=== PATIENT | female | born 1950 | race Caucasian/White ===

== ENCOUNTER 2021-03-25 08:00 | Outpatient (CLI) | payer OTHER, SELFPAY ==
--- NOTE | ~2021-03-25 | MM_ITS ---
EXAMINATION: MM screening [facility] BI w marleen HISTORY: Screening mammogram TECHNIQUE: Craniocaudal and mediolateral oblique 3-D tomosynthesis images were obtained and synthetic 2-D images were generated. CAD analysis was submitted and interpreted. COMPARISON: 05/16/2019, 03/30/2018, 03/25/2017 BREAST PARENCHYMAL COMPOSITION: The breasts are heterogeneously dense, which may obscure small masses . FINDINGS: There is no evidence of suspicious mass, calcification, or architectural distortion to sugg est malignancy in either breast. There has been no suspicious interval change. IMPRESSION: 1. No mammographic evidence of malignancy. 2. Recommend routine screening mammography in one year. BI-RADS Category 1: Negative Reviewed, dictated and finalized at location A.
== END 2021-03-25 08:01 | disposition home or self-care (01) ==
LOC: CHSIMG 08:03
PROVIDERS: PCP Internal Medicine; Visit Provider Internal Medicine
DX: Z12.31 Encounter for screening mammogram for malignant neoplasm of breast (principal)
CPT/HCPCS: 77063; 77067

== ENCOUNTER 2021-10-16 07:46 | Outpatient (CLI) | payer MEDICARE, SELFPAY ==
--- NOTE | ~2021-10-16 | DEXA_ITS ---
Bone Density Report Name: Francesca Parrish Age: 71 Sex: Female Ethnicity: White Date of : 1950 Indication: postmenopausal; screening for osteoporosis; height loss; hysterectomy; Referring Provider: Roger Santos Study: Bone densitometry was performed. Exam Date: October 16, 2021 Accession number: [id number] Bone Density: Region BMD T-score Z-score Classification AP Spine(L2, L3, L4) 1.130 0.5 2.6 Normal Femoral Neck (Left) 0.721 -1.1 0.6 Osteopenia Total Hip (Left) 0.751 -1.6 -0.1 Osteopenia Femoral Neck (Right) 0.711 -1.2 0.5 Osteopenia Total Hip (Right) 0.771 -1.4 0.1 Osteopenia Femoral Neck Mean 0.716 -1.2 0.6 Osteopenia Total Hip Mean 0.761 -1.5 0.0 Osteopenia World Health Organization criteria for BMD impression classify patients as: Normal (T-score at or above -1.0), Osteopenia (T-score between -1.0 and -2.5), or Osteoporosis (T-score at or below -2.5). 10-year Fracture Risk(1): Major Osteoporotic Fracture 8.7% Hip Fracture 0.9% Reported Risk Factors: [place] (), Neck BMD=0.711, BMI=31.6 (1) FRAX(R) Version 3.08. Fracture probability calculated for an untreated patient. Fracture probability may be lower if the patient has received treatment. Clinical Information Provided by Patient: Has used the following medications: Vitamin D Has the following medical conditions: Hysterectomy, ostearthritis Patient maximum height was 62 Menopause Age: 39 No regular weight bearing exercise Drinks caffeinated beverages Onset of menses at age 15 Number of children 2 Impression: The patient has low bone mass, based on the Left Total Hip T-score. Discussion: BONE DENSITY IS LOW AT ONE OR MORE SKELETAL SITES. This patient's lowest T-score is low at one or more skeletal sites. It meets the World Health Organization's (WHO) criteria for ?low bone mass? (T-score between -1.0 and -2.5). The patient's 10-year risk of fracture as calculated by FRAX is less than the threshold where pharmacological therapy is recommended by the National Osteoporosis Foundation (NOF). However, all treatment decisions require clinical judgment and consideration of individual patient factors, including patient preferences, comorbidities, previous drug use, risk factors not captured in the FRAX model (e.g., frailty, falls, vitamin D deficiency, increased bone turnover, interval significant decline in bone density) and possible under or overestimation of fracture risk by FRAX. The patient should follow a healthful lifestyle (good nutrition with adequate calcium and vitamin D, and appropriate weight-bearing exercise). Follow-Up: Consider repeating this study in 2 to 3 years to reassess this patient's status, or sooner if there is some new clinical indication. Reported by: Dr. Meza
== END 2021-10-16 07:47 | disposition home or self-care (01) ==
LOC: CHSIMG 07:47
PROVIDERS: PCP Internal Medicine; Visit Provider Internal Medicine
DX: M81.0 Age-related osteoporosis without current pathological fracture (principal)
CPT/HCPCS: 77080

== ENCOUNTER 2022-03-30 07:15 | Outpatient (CLI) | payer MEDICARE, SELFPAY ==
--- NOTE | ~2022-03-30 | MM_ITS ---
EXAMINATION: MM screening [facility] BI w marleen HISTORY: Screening mammogram TECHNIQUE: Craniocaudal and mediolateral oblique 3-D tomosynthesis images were obtained and synthetic 2-D images were generated. CAD analysis was submitted and interpreted. COMPARISON: 03/25/2021, 05/16/2019 BREAST PARENCHYMAL COMPOSITION: The breasts are heterogeneously dense, which may obscure small masses . FINDINGS: RIGHT BREAST: There is possible architectural distortion in the middle third of the outer breast best appreciated 5.5 cm from the nipple on the craniocaudal view. LEFT BREAST: There is no suspicious mass, calcification, or architectural distortion to suggest malig nida. There has been no significant interval change. IMPRESSION: 1. Possible right breast architectural distortion. 2. Additional mammographic views and possible breast ultrasound are recommended. BI-RADS Category 0: Incomplete: Needs additional imaging evaluation. Reviewed, dictated and finalized at location A. IMPRESSION: 1. Possible right breast architectural distortion. 2. Additional mammographic views and possible breast ultrasound are recommended . BI-RADS Category 0: Incomplete: Needs additional imaging evaluation.
== END 2022-03-30 07:16 | disposition home or self-care (01) ==
LOC: CHSIMG 07:16
PROVIDERS: PCP Internal Medicine; Visit Provider Internal Medicine
DX: Z12.31 Encounter for screening mammogram for malignant neoplasm of breast (principal)
CPT/HCPCS: 77063; 77067

== ENCOUNTER 2022-03-31 08:46 | Outpatient (CLI) | payer MEDICARE, SELFPAY ==
--- NOTE | ~2022-03-31 | MMUS_ITS ---
EXAMINATION: MM diagnostic [facility]ngel RT w marleen, US breast RT limited HISTORY: Possible architectural distortion of the right breast on screening mammogram. TECHNIQUE: Additional 3-D tomosynthesis images of the right breast were performed and synthetic 2-D i mages were generated. CAD analysis was submitted and interpreted. High resolution limited right breas t ultrasound was performed. COMPARISON: 03/30/2022, 03/25/2021, 05/16/2019, 04/09/2018 FINDINGS: MAMMOGRAPHIC FINDINGS: There is a return to baseline fibroglandular appearance with spot compression of the right breast in the area questioned on screening mammogram. ULTRASOUND: There appears to be a mass with central fat at the 8:00 location 3 cm from the nipple, suggestive of an intramammary lymph node. IMPRESSION: 1. Probable intramammary lymph node of the lower-outer right breast. 2. Recommend 6 month follow-up right diagnostic mammogram and ultrasound. BI-RADS category 3, probably benign findings. Reviewed, dictated and finalized at location A. IMPRESSION: 1. Probable intramammary lymph node of the lower-outer right breast. 2. Recommend 6 month follow-up right diagnostic mammogram and ultrasound. BI-RADS category 3, probably benign findings.
== END 2022-03-31 08:47 | disposition home or self-care (01) ==
LOC: CHSIMG 08:50
PROVIDERS: PCP Internal Medicine; Visit Provider Internal Medicine
DX: R92.8 Other abnormal and inconclusive findings on diagnostic imaging of breast (principal)
CPT/HCPCS: 76642; 77061; 77065; G0279

== ENCOUNTER 2022-10-27 08:39 | Outpatient (CLI) | payer MEDICARE, SELFPAY ==
--- NOTE | ~2022-10-27 | MMUS_ITS ---
EXAMINATION: MM diagnostic ángel RT w marleen, US breast RT limited HISTORY: Abnormal screening mammogram. TECHNIQUE: Additional 3-D tomosynthesis images of the right breast were performed and synthetic 2-D i mages were generated. CAD analysis was submitted and interpreted. High resolution Limited right breas t ultrasound was performed. COMPARISON: Comparison to multiple prior studies sequentially, with oldest reviewed study dated 03/25. BREAST PARENCHYMAL COMPOSITION: Breast composed of scattered areas of fibroglandular density FINDINGS: MAMMOGRAPHIC FINDINGS: The right breast is stable. There is a small intramammary lymph node in the mid outer aspect of the r ight breast which is unchanged dating back to 05/16/2019. ULTRASOUND: Limited right breast ultrasound: At 8:00, 3 cm from the nipple, there is a 4 mm intramammary lymph no de corresponding to the finding on mammography. This is unchanged from prior ultrasound. No suspiciou s masses to suggest malignancy. IMPRESSION: 1. Stable benign-appearing right intramammary lymph node by mammography and ultrasound. 2. Routine yearly screening mammogram and regular clinical breast examination are recommended. BI-RADS Category 2: Benign finding(s). Reviewed, dictated and finalized at location B. ER AND CELLOPHANER MACHINE IMPRESSION: 1. Stable benign-appearing right intramammary lymph node by mammography and ult rasound. 2. Routine yearly screening mammogram and regular clinical breast examination a re recommended. BI-RADS Category 2: Benign finding(s).
== END 2022-10-27 08:40 | disposition home or self-care (01) ==
LOC: CHSIMG 08:41
PROVIDERS: PCP Internal Medicine; Visit Provider Internal Medicine
DX: R92.8 Other abnormal and inconclusive findings on diagnostic imaging of breast (principal)
CPT/HCPCS: 76642; 77061; 77065; G0279

== ENCOUNTER 2023-01-19 17:20 | Outpatient (CLI) | payer MEDICARE, SELFPAY ==
--- NOTE | ~2023-01-19 | XR_ITS ---
EXAM: XR hand BI arthritis min 3V DATE: 01/19/2023 18:34 HISTORY: Bilateral chronic hand pain at base of 1st digits. . COMPARISON: None available. FINDINGS: Flexion contracture of the left fifth digit. Diffuse osteopenia. Joint space narrowing, cuba bchondral sclerosis, and osteophytosis in multiple joints, most evident in the DIP joints of the fing ers, the bilateral trapeziometacarpal joints, and the bilateral first and second MCP joints. There is chondrocalcinosis in the bilateral wrists. IMPRESSION: Polyarticular arthritis of the hands. Left fifth digit flexion contracture. Chondrocalcin osis, as can be seen with CPPD. Reviewed, dictated and finalized at location K. UITING TEAM LEAD IMPRESSION: Polyarticular arthritis of the hands. Left fifth digit flexion cont racture. Chondrocalcinosis, as can be seen with CPPD.
== END 2023-01-19 17:21 | disposition home or self-care (01) ==
LOC: CHSIMG 17:23
PROVIDERS: PCP Internal Medicine; Visit Provider Internal Medicine
DX: M79.641 Pain in right hand (principal); M79.642 Pain in left hand; M19.042 Primary osteoarthritis, left hand; M19.041 Primary osteoarthritis, right hand
CPT/HCPCS: 73130

== ENCOUNTER 2023-07-22 12:22 | Outpatient (CLI) | payer MEDICARE, SELFPAY ==
--- NOTE | ~2023-07-22 | US_ITS ---
EXAMINATION: US carotid duplex BI DATE: 07/22/2023 12:50 INDICATION: Carotid bruit TECHNIQUE: Grayscale, color Doppler, and pulsed Doppler images of the cervical carotid arteries were obtained. The degree of vessel stenosis is placed in one of the following categories: normal, <50%, 5 0-69%, >=70% but less than near-occlusion, near-occlusion, or total occlusion. Note that percent sten osis relative to normal distal artery lumen diameter is indirectly measured from velocity measurement s as described by Wilmer, et al. Radiology 2003; 229:340-346. COMPARISON: None. FINDINGS: RIGHT: The right common carotid artery (CCA) peak systolic velocity (PSV) is 79 cm/s. The right internal car otid artery (ICA) PSV is 106 cm/s. The right ICA end-diastolic velocity (EDV) is 45 cm/s. The right I CA/CCA PSV ratio is 1.3. Grayscale and color Doppler images yield an estimate of <50% diameter reduct ion from plaque in the ICA. The external carotid artery (ECA) PSV is 60 cm/s. There is antegrade flow in the right vertebral artery. LEFT: The left CCA PSV is 80 cm/s. The left ICA PSV is 103 cm/s. The left ICA EDV is 38 cm/s. The left ICA/ CCA PSV ratio is 1.3. Grayscale and color Doppler images yield an estimate of <50% diameter reduction from plaque in the ICA. The ECA PSV is 83 cm/s. There is antegrade flow in the left vertebral artery . IMPRESSION: 1. <50% stenosis in the right internal carotid artery. 2. <50% stenosis in the left internal carotid artery. Reviewed, dictated and finalized at location A.
== END 2023-07-22 12:23 | disposition home or self-care (01) ==
LOC: CHSIMG 12:24
PROVIDERS: PCP Internal Medicine; Visit Provider Internal Medicine
DX: R09.89 Other specified symptoms and signs involving the circulatory and respiratory systems (principal); I65.23 Occlusion and stenosis of bilateral carotid arteries
CPT/HCPCS: 93880

== ENCOUNTER 2023-10-29 11:59 | Outpatient (CLI) | payer MEDICARE, SELFPAY ==
--- NOTE | ~2023-10-29 | DEXA_ITS ---
Bone Density Report Name: RONNIE ABRAHAM Age: 73 Sex: Female Ethnicity: White Date of : 1950 Indication: postmenopausal; screening for osteoporosis; height loss; hysterectomy; Referring Provider: Roger Santos Study: Bone densitometry was performed. Exam Date: October 29, 2023 Accession number: [id number] Bone Density: Region BMD T-score Z-score Classification AP Spine(L2, L3, L4) 1.128 0.4 2.7 Normal Femoral Neck (Left) 0.687 -1.5 0.4 Osteopenia Total Hip (Left) 0.770 -1.4 0.2 Osteopenia Femoral Neck (Right) 0.684 -1.5 0.4 Osteopenia Total Hip (Right) 0.773 -1.4 0.2 Osteopenia Femoral Neck Mean 0.685 -1.5 0.4 Osteopenia Total Hip Mean 0.772 -1.4 0.2 Osteopenia World Health Organization criteria for BMD impression classify patients as: Normal (T-score at or above -1.0), Osteopenia (T-score between -1.0 and -2.5), or Osteoporosis (T-score at or below -2.5). 10-year Fracture Risk(1): Major Osteoporotic Fracture 9.8% Hip Fracture 1.5% Reported Risk Factors: [place] (), Neck BMD=0.684, BMI=32.4 (1) FRAX(R) Version 3.08. Fracture probability calculated for an untreated patient. Fracture probability may be lower if the patient has received treatment. Clinical Information Provided by Patient: Has used the following medications: Vitamin D Has the following medical conditions: Hysterectomy, ostearthritis Patient maximum height was 62 Menopause Age: 39 No regular weight bearing exercise Drinks caffeinated beverages Onset of menses at age 15 Number of children 2 Impression: The patient has low bone mass, based on the Left Femoral Neck T-score. Discussion: BONE DENSITY IS LOW AT ONE OR MORE SKELETAL SITES. This patient's lowest T-score is low at one or more skeletal sites. It meets the World Health Organization's (WHO) criteria for ?low bone mass? (T-score between -1.0 and -2.5). The patient's 10-year risk of fracture as calculated by FRAX is less than the threshold where pharmacological therapy is recommended by the National Osteoporosis Foundation (NOF). However, all treatment decisions require clinical judgment and consideration of individual patient factors, including patient preferences, comorbidities, previous drug use, risk factors not captured in the FRAX model (e.g., frailty, falls, vitamin D deficiency, increased bone turnover, interval significant decline in bone density) and possible under or overestimation of fracture risk by FRAX. The patient should follow a healthful lifestyle (good nutrition with adequate calcium and vitamin D, and appropriate weight-bearing exercise). Follow-Up: Consider repeating this study in 2 to 3 years to reassess this patient's status, or sooner if there is some new clinical indication. Reported by:
--- NOTE | ~2023-10-29 | MM_ITS ---
EXAMINATION: MM screening [facility] BI w marleen HISTORY: Screening TECHNIQUE: Craniocaudal and mediolateral oblique 3-D tomosynthesis images were obtained and synthetic 2-D images were generated. CAD analysis was submitted and interpreted. COMPARISON: Comparison to multiple prior studies sequentially, with oldest reviewed study dated 03/30. BREAST PARENCHYMAL COMPOSITION: Breast composed of scattered areas of fibroglandular density FINDINGS: There is a chronic focal asymmetry in the mid outer aspect of the right breast anterior-mid depth which is unchanged from prior studies allowing for differences of technique There is no eviden ce of suspicious mass, calcification, or architectural distortion to suggest malignancy in either mateo ast. There has been no suspicious interval change. IMPRESSION: 1. No mammographic evidence of malignancy. 2. Recommend routine screening mammography in one year. BI-RADS Category 2: Benign finding(s). Reviewed, dictated and finalized at location A. GRADER
== END 2023-10-29 12:00 | disposition home or self-care (01) ==
LOC: CHSIMG 12:01
PROVIDERS: PCP Internal Medicine; Visit Provider Internal Medicine
DX: Z12.31 Encounter for screening mammogram for malignant neoplasm of breast (principal); Z78.0 Asymptomatic menopausal state; M85.89 Other specified disorders of bone density and structure, multiple sites
CPT/HCPCS: 77063; 77067; 77080

== ENCOUNTER 2024-02-08 14:03 | Outpatient (CLI) | payer MEDICARE, SELFPAY ==
--- NOTE | ~2024-02-08 | XR_ITS ---
XR knee RT 3V 02/08/2024 14:37 Indication: Right knee pain Procedure: 3 views right knee Comparison: No prior studies for comparison. Findings: No fracture, subluxation or dislocation. No significant joint effusion. No foreign bodies. No significant joint effusion. Mild osteoarthritis. Impression: 1: Mild osteoarthritis of the right knee. Reviewed, dictated and finalized at location L. Impression: 1: Mild osteoarthritis of the right knee.
--- NOTE | ~2024-02-08 | XR_ITS ---
XR knee LT 3V 02/08/2024 14:36 Indication: Left knee pain Procedure: 3 views left knee Comparison: No prior studies for comparison. Findings: There is mild-moderate lateral compartmental osteoarthritis. There is degenerative change o f the patellofemoral compartment medial facet. No fracture or traumatic malalignment. No significant joint effusion. Impression: 1: Moderate osteoarthritis of the left knee. Reviewed, dictated and finalized at location L. Impression: 1: Moderate osteoarthritis of the left knee.
== END 2024-02-08 14:04 | disposition home or self-care (01) ==
LOC: CHSIMG 14:04
PROVIDERS: PCP Internal Medicine; Visit Provider Internal Medicine
DX: M17.0 Bilateral primary osteoarthritis of knee (principal); M25.562 Pain in left knee
CPT/HCPCS: 73562

== ENCOUNTER 2024-06-13 07:43 | Outpatient (RCR) | payer MEDICARE, SELFPAY ==
--- NOTE | 2024-06-13 08:15 | OPREHPOC ---
Outpatient Therapy Plan of Care This is a Multidisciplinary Plan of Care that may contain components documented by all disciplines (PT, OT, and ST.) PT Problem 1 PT Problem #1 Knowledge Deficit PT Goal 1 Goal The patient will be independent in a home exercise program. Target Visit 8 PT Problem 2 PT Problem #2 Pain PT Goal 1 Goal The patient will report no greater than 4/10 left knee pain with ADLs. The patient will report no greater than 2/10 right knee pain with ADLs. Target Visit 8 PT Problem 3 PT Problem #3 Impaired Range of Motion PT Goal 1 Goal The patient will demonstrate 0-130 degrees left knee AROM to improve gait. Target Visit 8 PT Problem 4 PT Problem #4 Impaired Functional Mobil PT Goal 1 Goal The patient will demonstrate less than 50% self perceived disability per the LEFS. The patient will ambulate 1,000 feet during the 6 minute walk test without a rest break to improve community ambulation. The patient will report no instances of the left knee giving out for a one week period. Target Visit 8
--- NOTE | 2024-06-13 08:15 | PTOPEVAL1 ---
Assessment and note entered by Ester Rod, PT Evaluation Information Assessment Status Evaluation Diagnosis Bilateral knee OA ICD-10 Condition Codes (PT) M25.561,Pain in left knee M25.562 Onset 06/12/24 Subjective Information Francesca Parrish reports she has arthritis in both knees. She has had 2 injections in her left knee but it has not helped. The first injection was about 3-4 months ago and it helped temporarily but then the pain returned. She had the second injection on 06/12/24. She notes the right knee has been taking over for the left knee and it has been hurting as well. She notes the left knee will occasionally give out on her. She was using a cane about 3 weeks ago after her knee gave out the last time. She notes difficulty with walking longer distances and has to take stairs one at a time. She reports a history of falling on the left knee and fracturing her left knee cap about 15 years ago and she also has osteopenia. Reported Pain Level Pain Score 2,0: Self Report Assessment PT Clinical Summary Francesca Parrish presents with bilateral knee pain with the left being worse than the right. She has been diagnosed with osteoarthritis. She is noting difficulty walking long distances, navigating stairs, walking on uneven terrain, and bending her left knee. She demonstrates tenderness along the left and right knee joint line, decreased left knee AROM, decreased left > right knee and hip strength, decreased balance, altered gait, and decreased functional abilities. She demonstrates a moderate fall risk. She will benefit from skilled PT to address these limitations. Plan of Care Interventions Electrical Stimulation,Hot Pack/Cold Pack, Intermittent Compression,Manual Therapy,Neuro Re- education,Patient/Caregiver Educati,Therapeutic Activities,Therapeutic Exercise PT Services Indicated Yes Treatment Frequency and 2 times a week for 8 visits Duration These treatments will address the objective and functional deficits as defined above. The patient will be advanced safely and appropriately in order for the patient to progress towards his/her prior level of function. Additional exercises will be introduced and as well as a comprehensive home exercise program upon discharge, if needed, ?to ensure carryover of functional gains achieved in the clinic. This treatment plan has been reviewed and agreement upon by the patient.
--- NOTE | 2024-07-06 07:50 | OPREHPOC ---
Outpatient Therapy Plan of Care This is a Multidisciplinary Plan of Care that may contain components documented by all disciplines (PT, OT, and ST.) PT Problem 1 PT Problem #1 Knowledge Deficit PT Goal 1 Goal / Goal Update The patient will be independent in a home exercise program. Target Visit 8 Progress Met PT Problem 2 PT Problem #2 Pain PT Goal 1 Goal / Goal Update The patient will report no greater than 4/10 left knee pain with ADLs. The patient will report no greater than 2/10 right knee pain with ADLs. Target Visit 8 Progress Met PT Problem 3 PT Problem #3 Impaired Range of Motion PT Goal 1 Goal / Goal Update The patient will demonstrate 0-130 degrees left knee AROM to improve gait. Target Visit 8 Progress Met PT Problem 4 PT Problem #4 Impaired Functional Mobil PT Goal 1 Goal / Goal Update The patient will demonstrate less than 50% self perceived disability per the LEFS. met The patient will ambulate 1,000 feet during the 6 minute walk test without a rest break to improve community ambulation. met The patient will report no instances of the left knee giving out for a one week period. met Target Visit 8 Progress Met
--- NOTE | 2024-07-06 07:50 | PTOPDC ---
Assessment and note entered by JT File, PT Evaluation Information Assessment Status Discharge Diagnosis Bilateral knee OA ICD-10 Condition Codes (PT) M25.561,Pain in left knee M25.562 Onset 06/12/24 Subjective Information patient reports she feels Good today. she reports her knees are a little achy, but reports this is most likely due to the weather. patient reports the knees do not give out on her any more. she reports she walked outside for about 30 minutes last night with her . she reports at worst her pain/soreness has been no more than a 4/10. she reports she has not had to take her pain medication. Reported Pain Level Pain Score 0: Self Report Assessment PT Clinical Summary mrs. green presents to skilled PT services for her 8th skilled PT visit today. she has displayed improved knee rom, ambulation speed/endurance, and functional activity envolvment/performance. she has met all goals for skilled PT today, and is compliant with her HEP at home. she will DC skilled PT today to independent HEP. Plan of Care PT Services Indicated Yes
== END 2024-07-06 08:50 | disposition home or self-care (01) ==
LOC: CHSPT 07:43
PROVIDERS: Visit Provider Internal Medicine
DX: M17.0 Bilateral primary osteoarthritis of knee (principal)
CPT/HCPCS: 97110; 97112; 97161; 97530

== ENCOUNTER 2025-02-17 10:24 | Outpatient (CLI) | payer MEDICARE, SELFPAY ==
--- NOTE | ~2025-02-17 | MR_ITS ---
EXAMINATION: MR knee LT wo con DATE: 02/17/2025 11:02 INDICATION: Lt. knee pain x1 year, NKI TECHNIQUE: Magnetic resonance imaging (MRI) of the left knee was performed without intravenous contra st. Sequences included axial PD-weighted FS FSE, coronal PD-weighted FSE and PD-weighted FS FSE, sagi ttal PD-weighted FSE, and sagittal T2-weighted FS FSE. COMPARISON: X-ray left knee 02/08/2024 FINDINGS: Medial compartment: Meniscus intact. Moderate diffuse cartilage thinning. Mild osteophytosis. Lateral compartment: Full-thickness, near diffuse cartilage loss in the lateral compartment, with moderate osteophytosis. The anterior meniscal horn is not visualized. Apical meniscal tear at the meniscal body. Mild menisca l extrusion. Patellofemoral compartment: Moderate diffuse thinning, with full-thickness loss over the median ridge and multiple full-thickness fissures. Retinacula intact. Ligaments and tendons: The ACL, PCL, MCL, and LCL are intact. Remaining flexor and extensor tendons are intact. Fluid: Moderate volume joint fluid. Avila's cyst. Osseous/other: Mild marrow edema in the LFC and lateral tibial plateau IMPRESSION: Complex lateral meniscal tear, with likely displaced anterior horn and extrusion. Tricompartmental osteoarthritic changes, severe in the lateral compartment. Mild marrow edema/contusion in the LFC and lateral tibial plateau. Moderate joint effusion. Reviewed, dictated and finalized at location K. IMPRESSION: Complex lateral meniscal tear, with likely displaced anterior horn and extrusio n. Tricompartmental osteoarthritic changes, severe in the lateral compartment. Mild marrow edema/contusion in the LFC and lateral tibial plateau. Moderate joint effusion.
--- OUTSIDE RECORDS SUMMARY | 2025-02-17 10:29 | XMS_ITS | Clinical Summary ---
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 Gender Identity Not on file Sexual Orientation Not on file Plan of Treatment Health Maintenance Due Date Last Done Comments Colorectal Cancer Screening Colonoscopy (10 Years) 1950 Hepatitis C 1970 DTaP, Tdap and Td Vaccines ( 1 - Tdap) 1971 Mammogram Screening 1992 Zoster Vaccines (1 of 2) 2002 Dexa Scan (General) 2017 Pneumococcal Vaccine: 65+ Ye ars (1 of 1 - PCV) 2017 COVID-19 Vaccine ( - 2023-2 5 season) 2024 Influenza Adult (#1) 2024 RSV Immunization or 60+ Years (1 - 1-dose 75+ series) 2027 Meningococcal B Vaccine Aged Out No l onger eligible based on patient's age to complete this topic Meningococcal Vaccine Aged Out No mylene walker eligible based on patient's age to complete this topic RSV Immunizations Under 20 Months Aged Out No longer eligible based on patient's age to complete this topic
== END 2025-02-17 10:25 | disposition home or self-care (01) ==
PROVIDERS: PCP Internal Medicine; Visit Provider Internal Medicine
DX: M25.562 Pain in left knee (principal); S83.272A Complex tear of lateral meniscus, current injury, left knee, initial encounter; M17.12 Unilateral primary osteoarthritis, left knee; S80.02XA Contusion of left knee, initial encounter; M25.462 Effusion, left knee
CPT/HCPCS: 73721

== ENCOUNTER 2025-02-19 07:17 | Outpatient (CLI) | payer MEDICARE, SELFPAY ==
--- NOTE | ~2025-02-19 | MM_ITS ---
EXAMINATION: MM screening [facility] BI w marleen HISTORY: Screening TECHNIQUE: Craniocaudal and mediolateral oblique 3-D tomosynthesis images were obtained and synthetic 2-D images were generated. CAD analysis was submitted and interpreted. COMPARISON: Comparison to multiple prior studies sequentially, with oldest reviewed study dated 12/2018. BREAST PARENCHYMAL COMPOSITION: Not dense: There are scattered areas of fibroglandular density. FINDINGS: Asymmetries in the upper outer quadrant of the right breast are unchanged from prior studie s allowing for differences of technique. There is no evidence of suspicious mass, calcification, or a rchitectural distortion to suggest malignancy in either breast. There has been no suspicious interval change. IMPRESSION: 1. No mammographic evidence of malignancy. 2. Recommend routine screening mammography in one year. BI-RADS Category 2: Benign finding(s). Reviewed, dictated and finalized at location A.
--- OUTSIDE RECORDS SUMMARY | 2025-02-19 07:21 | XMS_ITS | Clinical Summary ---
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
== END 2025-02-19 07:18 | disposition home or self-care (01) ==
LOC: CHSIMG 07:19
PROVIDERS: PCP Internal Medicine; Visit Provider Internal Medicine
DX: Z12.31 Encounter for screening mammogram for malignant neoplasm of breast (principal)
CPT/HCPCS: 77063; 77067

== ENCOUNTER 2025-05-03 09:50 | Outpatient (CLI) | payer MEDICARE, SELFPAY ==
[2025-05-03 11:46] LABS: Basophils Percent Auto 0.4 % (0.2-1.2); Eosinophils Absolute Auto 0.1 K/mm3 (0-0.3); Hematocrit 40.1 % (37.0-47.0); Hemoglobin 13.1 g/dL (12.0-15.0); Immature Granulocyte Absolute 0.01 K/mm3 (0.00-0.031); Immature Granulocyte Percent A 0.1 % (0-0.5); Lymphocytes Absolute Auto 1.95 K/mm3 (0.9-3.2); Lymphocytes Percent Auto 29.2 % (18.3-44.2); Mean Corpuscular HGB Conc 32.7 g/dl (32-36); Mean Corpuscular Hemoglobin 32.4 pg (26-34); Mean Corpuscular Volume 99.3 fl (80-100); Mean Platelet Volume 9.6 fl (7.4-10.4); Monocytes Absolute Auto 0.5 K/mm3 (0.1-0.6); Monocytes Percent Auto 7.5 % (2.6-8.5); Neutrophils Absolute Auto 4.1 K/mm3 (1.3-6.7); Neutrophils Percent Auto 61.8 % (45.5-73.1); Platelet Count Result 277 k/mm3 (150-375); Red Blood Count 4.04 M/mm3 (4.2-5.4); Red Cell Distribution Width 12.3 % (11.5-14.5); White Blood Count 6.7 K/mm3 (4.5-10.0)
[2025-05-03 11:53] LABS: Albumin Level 4.2 g/dL (3.5-5.1); Anion Gap 7 mmol/L (4-12); Blood Urea Nitrogen 21 mg/dL (7-17); Calcium 9.9 mg/dL (8.4-10.2); Carbon Dioxide 31 mmol/L (22-30); Chloride 101 mmol/L (98-107); Estimated Glomerular Filt Rate > 60; Glucose 85 mg/dL (65-110); Potassium 3.6 mmol/L (3.4-5.0); Sodium 139 mmol/L (137-145)
[2025-05-03 11:55] LABS: Urine Cotinine NEGATIVE
[2025-05-03 12:51] LABS: Hemoglobin A1C 5.4 % (<5.7)
== END 2025-05-03 09:51 | disposition home or self-care (01) ==
LOC: ANHSURGERY 09:56
PROVIDERS: PCP Internal Medicine; Visit Provider Orthopaedic Surgery
DX: Z01.812 Encounter for preprocedural laboratory examination (principal); M17.12 Unilateral primary osteoarthritis, left knee
CPT/HCPCS: 80048; 80307; 82040; 83036; 85025; 87081

== ENCOUNTER 2025-05-31 02:19 | Day surgery (SDC) | payer MEDICARE, SELFPAY ==
--- NOTE | 2025-05-03 09:59 | PC.NURSE ---
Report to the Outpatient Waiting Room, entrance under the green pavilion located off [facility], at time _9:30 am on date _05/31/25 . Planned Procedure Time: _11:30 am .? Time changes happen often and if your time is changed the preop area will call you the afternoon before. - You and your visitor will be asked to self-screen and do not enter if you have any COVID symptoms. Please call surgeon if you need to reschedule. - A mask is optional within the hospital at this time. Patients may have clear liquids (water, carbonated beverages, clear teas, apple juice) until 3 hours prior to surgery ( 8:30 am)with a maximum of 20 ounces. - No food from midnight until time of surgery and no smoking, or chewing tobacco (or any form of nicotine). No chewing gum, candy or mints. - Take only the following medications with a SIP of water on the morning of surgery: ___NONE DO NOT STOP ANY OF YOUR OTHER PRESCRIPTION MEDICATIONS PRIOR TO SURGERY EXCEPT THE FOLLOWING Hold all vitamins and supplements for 3 days per anesthesiologist.LAST DOSE 05/27/25 Medications to discontinue per physician MAY TAKE TYLENOL IF NEEDED FOR PAIN Please no make-up, nail macedonian, hairspray, perfume, deodorant, or body powder the day of surgery.? No jewelry (including any body piercings) or valuables the day of surgery, leave them at home.? Please take a shower or bath the night before, or the morning of, surgery with an antibacterial soap.? Wear comfortable, loose fitting clothing.? Children are encouraged to wear pajamas. - Jewelry must be removed prior to entering the operating room.? Rings and piercings that are not removed may be cut off. - The hospital will not accept responsibility for valuables.? - Please leave all valuables, including medications, at home the day of surgery. If you are going home after surgery, a licensed delivery driver assistant must drive you home.? - NO public transportation without another adult if you receive anesthesia. - We recommend that an adult stay with you for 24 hours following discharge. - We also recommend that you do not drive, make important decision, drink alcoholic beverages, or take any drugs that were not prescribed by your health care provider for at least 24 hours after your discharge time. For Pediatric surgeries, we recommend two adults accompany the child home. Follow any additional instructions given to you from your surgeon. VERBAL AND WRITTEN instructions given to __PATIENT AND SPOUSE JOHN and asked if any additional questions and then verbalized understanding. Patient advised to call surgeon office or pre surgery nurse liaison [phone] if any additional questions.
[2025-05-03 10:01] VITALS: BMI 29.6
[2025-05-03 10:52] VITALS: BP 145/72; PULSE 67; RESP 18; TEMP 36.6; O2SAT 97
--- NOTE | 2025-05-30 11:41 | PM.IMHP ---
H&P: HPI History of Present Illness Date/Time: 05/30/25 11:41 Chief Complaint: Left knee DJD Narrative: 74-year-old female presents today for left total knee arthroplasty. She has severe lateral compartment osteoarthritis in the knee. Her symptoms a becoming more problematic on a daily basis for her. Pain is limiting her daily activities at times. Patient avoids anti-inflammatories, she has had a history of GI intolerance to them. She has had 3 cortisone injections in the knee in the past. Last 1 was in fall of last year. She got mild improvement of her symptoms. She has also been through formal physical therapy for her knee. At this point patient does not feel that nonsurgical treatment for her knee is giving her enough improvement. She feels she is ready proceed with total knee arthroplasty at this point. Review of Systems Review of Systems: All systems reviewed & are unremarkable except as noted in HPI and below PMFSH Surgical History Surgical History History of bunionectomy History of hand surgery History of hysterectomy History of cholecystectomy Social History Social History Smoking packs per day: 0.5 Smoking cigarettes per day: 10.0 Years smoked: 5 Smoking pack-years: 2.50 Smoking status: Former smoker Tobacco type: cigarettes Smoking end date: 11/15/72 Additional smoking assessment comments: DENIES ANY FORM OF TOBACCO USE Alcohol intake: current Alcohol use details: Occasional Substance use: never Do You Feel Safe in your Home?: Yes Lack of Transportation: No Lack of Food: Never True Current Housing: I Have Housing Concerned About Future Housing: No Difficulty Paying Gas/Electric Bills: No Difficulty Paying for Meds: No Currently Unemployed: No Education: High School Diploma/GED Difficulty w/ Childcare or Family Care: No Living arrangements: with family Spiritual care concerns: No Meds Home Medications and Allergies Home Medications ?Medication ?Instructions ?Recorded ?Confirmed ?Type Calcium Plus Vitamin D PO DAILY 04/04/25 04/04/25 History baclofen 20 mg tablet 20 mg PO PRN PRN muscle pain 04/04/25 05/03/25 History fluticasone propionate 50 1 spray intranasal DAILY 04/04/25 05/03/25 History mcg/actuation nasal spray,suspension (Flonase Allergy Relief) lisinopril 20 1 tablet PO DAILY 04/04/25 05/03/25 History mg-hydrochlorothiazide 12.5 mg tablet [id number] 8 mg-folic 400 1 tablet PO DAILY 04/04/25 05/03/25 History mcg-K 50 mcg-lutein 300 mcg tablet (Centrum Silver Women) pravastatin 10 mg tablet 10 mg PO DAILY 04/04/25 05/03/25 History tramadol 50 mg tablet 50 mg PO Q6H PRN pain 04/04/25 05/03/25 History acetaminophen 500 mg tablet 1,000 mg PO Q6H PRN pain 05/03/25 05/03/25 History (Acetaminophen Pain Relief) Allergies Allergy/AdvReac Type Severity Reaction Status Date / Time codeine AdvReac Intermediate Nausea Verified 05/30/25 07:17 anesthesia AdvReac Mild Nausea Uncoded 05/30/25 07:17 Exam Narrative: 74-year-old female alert pleasant. She 5 ft 1 and 150 lb BMI is 28.5. She walks with a moderate limp. Range of motion left knee is from 2-140 degrees. She has moderate lateral pseudolaxity to varus stress that does seem to correct fully. Normal sensation left lower extremity. Trace effusion. Hip range of motion is full without discomfort. Negative Stinchfield maneuver. 2+ dorsalis pedis pulse palpable. No edema in either lower extremity Resp: Auscultation: clear to auscultation bilaterally Cardio: Rate: regular rate Rhythm: regular rhythm Assessment and Plan Assessment and plan (1) Primary osteoarthritis of left knee: Code(s): M17.12 - Unilateral primary osteoarthritis, left knee Status: Acute Assessment and Plan: 74-year-old female who has severe lateral compartment osteoarthritis. Again at this point nonsurgical treatment is not giving her good relief and she feels she is ready proceed with total knee arthroplasty. Surgical procedures well as the risks and complications were discussed in detail and all questions were answered her proceed. She will see her primary care doctor for pre-surgical clearance. Nasal swab was negative. Hemoglobin 13.1 and platelets were 277. Chem panel showed normal a kidney function with creatinine at 0.72
[2025-05-31] VITALS (19 sets, daily range): BP systolic 95–144; BP diastolic 48–86; PULSE 68–105; RESP 11–20; TEMP 36.8–37.2; O2SAT 92–100; BMI 31.1
--- NOTE | ~2025-05-31 | XR_ITS ---
[id number] Ordering provider: Olu Palumbo MD History: . POST-OP, LEFT TKA . Comparison: April 05, 2025 FINDINGS/impression: Left total knee arthroplasty. Postoperative changes in the subcutaneous and soft tissues. Multiple hypodensities seen in the femur and tibia which may be due to overlapping shadows. Follow-up advised. Reviewed, dictated and finalized at location A.
--- OUTSIDE RECORDS SUMMARY | 2025-05-31 02:21 | XMS_ITS | Clinical Summary ---
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
[2025-05-31] MEDS: LACTATED RINGERS 1,000 ML 30 ML IV CONT ×2 (06:40→11:03)
[2025-05-31] MEDS: ACETAMINOPHEN 500 MG TABLET 1000 MG PO (06:46)
--- NOTE | 2025-05-31 06:51 | P.PNAN_ITS ---
Anes - Initial Pre Proc Eval Procedure: Operation Date: 05/31/25 07:30 Proposed Procedures p Left Total Knee Arthroplasty - Olu Palumbo MD Date/Time: 05/31/25 06:51 Surgeon: Olu Palumbo MD Pre Op Diagnosis: O A Left Knee Patient Data Age: 74 Gender: F Height: 1.52 m Weight: 67.8 kg Last Vital Signs Temp 36.6 C 05/03/25 10:52 Pulse 67 05/03/25 10:52 Resp 18 05/03/25 10:52 BP 145/72 H 05/03/25 10:52 Pulse Ox 97 05/03/25 10:52 O2 Del Method Room Air 05/03/25 10:52 Allergies Allergy/AdvReac Type Severity Reaction Status Date / Time codeine AdvReac Intermediate Nausea Verified 05/31/25 06:10 Home Medications ?Medication ?Instructions ?Recorded ?Confirmed ?Type Calcium Plus Vitamin D 1 tablet PO DAILY 04/04/25 05/31/25 History baclofen 20 mg tablet 20 mg PO PRN PRN muscle pain 04/04/25 05/31/25 History fluticasone propionate 50 1 spray intranasal DAILY 04/04/25 05/31/25 History mcg/actuation nasal spray,suspension (Flonase Allergy Relief) lisinopril 20 1 tablet PO DAILY 04/04/25 05/31/25 History mg-hydrochlorothiazide 12.5 mg tablet hebssoso-rhlr-lsuo 8 mg-folic 400 1 tablet PO DAILY 04/04/25 05/31/25 History mcg-K 50 mcg-lutein 300 mcg tablet (Centrum Silver Women) pravastatin 10 mg tablet 10 mg PO DAILY 04/04/25 05/31/25 History tramadol 50 mg tablet 50 mg PO Q6H PRN pain 04/04/25 05/31/25 History acetaminophen 500 mg tablet 1,000 mg PO Q6H PRN pain 05/03/25 05/31/25 History (Acetaminophen Pain Relief) potassium chloride 10 mEq 10 meq PO DAILY 05/31/25 05/31/25 History tablet,extended release (Klor-Con) Patient hx anesthesia problems: none Family hx anesthesia problems: none Results Review: All pre-operative results and documents have been reviewed as part of the pre- operative evaluation. [facility] Past Medical History Medical History (Updated 05/31/25 @ 06:53 by Noah Ordonez DO) Hyperlipidemia Hypertension Surgical History Surgical History History of bunionectomy History of hand surgery History of hysterectomy History of cholecystectomy Social History Social History Smoking packs per day: 0.5 Smoking cigarettes per day: 10.0 Years smoked: 5 Smoking pack-years: 2.50 Smoking status: Former smoker Tobacco type: cigarettes Smoking end date: 11/15/72 Additional smoking assessment comments: DENIES ANY FORM OF TOBACCO USE Alcohol intake: current Alcohol use details: Occasional Substance use: never Do You Feel Safe in your Home?: Yes Lack of Transportation: No Lack of Food: Never True Current Housing: I Have Housing Concerned About Future Housing: No Difficulty Paying Gas/Electric Bills: No Difficulty Paying for Meds: No Currently Unemployed: No Education: High School Diploma/GED Difficulty w/ Childcare or Family Care: No Living arrangements: with family Spiritual care concerns: No Anes - Eval Final PreProcedure Day of Procedure 05/31/25 06:51 Patient weight: overweight Heart: regular rate and rhythm Lungs: clear to auscultation Airway: Mallampati scale class II Neurological: alert and oriented Last oral intake: >/= 8 hours ASA classification: II Emergent: no Anesthetic plan: proceed Anesthesia type and monitoring: general ETT and standard monitoring Results Review: All pre-operative results and documents have been reviewed as part of the pre- operative evaluation. Informed Consent: The patient's anesthetic plan and its attendant risks and benefits were discussed with the patient/family/POA. Questions were solicited and answers provided to the satisfaction of the patient/family/POA.
[2025-05-31] MEDS: VANCOMYCIN HCL 1,000 MG in SODIUM CHLORIDE 0.9% IV 250 ML 250 MG IVPB ×2 (07:06→18:22)
[2025-05-31] MEDS: TRANEXAMIC ACID 1,000MG/ISO100 1,000 MG/100 ML BAG 200 MG IVPB (07:10)
--- NOTE | 2025-05-31 07:14 | WPDHPUPDATE1 ---
History and Physical Update Update Date/Time: 05/31/25 07:14 History and Physical has been reviewed, including an updated exam of the patient. There are NO changes in the patient's condition. Risks, benefits, and alternatives have been discussed and questions answered. Patient agrees to proceed with procedure.
[2025-05-31] MEDS: SODIUM CHLORIDE 0.9% IV 38.7 ML, ROPivacaine HCL 1% 200 MG, KETOROLAC INJ (*BKC) 15 MG,... INFILTRATE (07:29)
[2025-05-31] MEDS: ceFAZolin 2 GM in SODIUM CHLORIDE 0.9% IV 50 ML 100 ML IVPB (07:30)
[2025-05-31] MEDS: TRANEXAMIC ACID 1,000 MG/10 ML AMPUL 1000 MG IV PUSH (10:12)
[2025-05-31] MEDS: KETOROLAC 15 MG/ML VIAL (*BKC) 7.5 MG IV PUSH ×3 (10:37→23:25)
--- NOTE | 2025-05-31 10:55 | P.OP_ITS ---
Procedure Note - Detailed Date of Procedure 05/31/25 Pre-op Diagnosis O A Left Knee Post-op Diagnosis Same Procedure Performed Left total knee arthroplasty Surgeon Olu Palumbo MD Sugar Laboratory Assistant Vasiliy Anesthesia General Description of Procedure Patient was brought to the operating room and general anesthesia was administered. She received 2 g of Ancef weight based vancomycin 1 g of TXA preoperatively. The left knee was prepped and draped usual fashion. She had full extension under anesthesia perhaps a degree of hyperextension and prominent lateral pseudolaxity. The valgus deformity seemed to correct passively. The limb was exsanguinated tourniquet elevated to 300 mmHg. A size 7 in longitudinal midline incision was used and a standard parapatellar arthrotomy utilized. Infrapatellar and suprapatellar fat pads were excised the quadriceps synovectomy carried out. The patella had intact articular cartilage with minimal spurring which was debrided and I felt this was very suitable for non resurfacing. Minimal lateral facetectomy was performed. Next a guide jessenia was inserted on femoral canal after aspiration of canal contents using the 5 degree valgus cutting bushing, 9 mm of bone removed the distal femur. This removed 9 mm medially but because of the wear laterally it only removed about 4 from the lateral side. The next the tibial plateau was cut. We tried to achieve a skim cut performed perpendicular to the axis of the tibia. With this performed, meniscal remnants were excised the PCL was recessed from the femur. Flexion gap measured a tight 8 mm medially and 11 mm laterally therefore removed an additional 1.5 mm on the tibial plateau. At this time, the medial side measured 8.5 mm medially and 11.5 mm laterally. The femoral sizing guide was applied set at 4? of external rotation which matched Whitesides line. Posterior referencing pinholes were placed and the vanguard size 60 cutting block was applied. This was going to notch a little bit. A very small amount of slope was placed in the distal femoral cuts and with the 60 this gave a flush cut with the anterior cortex. Chamfer posterior cuts were made. Sixty and fortunately was still too wide. It overhung laterally about 2.5 mm. On trialing with the 10 CR there was 0.5 mm play medially at 90? and 2 mm laterally. The knee was far too tight medially and laterally to allow full extension. Therefore, an additional 2 mm of bone was removed the distal femur. The tibial plateau was sized to a 63 which fit line to line anteromedial to posterolateral. This was punched and we trialed with the 10 insert. At 90? we were just a little bit tight medially and with the arthrotomy towel clipped I felt we were too tight medially. Had the appropriate amount of play laterally to anterior posterior drawer. We lacked a few degrees of extension a no play laterally and a mm of play medially. The femoral trial was still too wide and overhanging laterally which prompted us to down size to a 57.5. We had to introduced a little bit more slope of the femoral component to avoid. I also translated the medial side of the cutting block a mm anteriorly by removing the medial pin from the cutting block the cutting block was stabilized to the femur with threaded spring pins and the fem ur cut to the 57.5. This gave a flush cut with the anterior cortex with no notch. Residual posterior femoral bone was removed proximal to the posterior margin of the femoral trial. On trialing, the anterior drawer stability was ideal with the 10 insert that 90? and gravity flexion with the arthrotomy towel clipped was 130?. In extension the knee opened up about 1.5 mm medially and perhaps a 0.5 mm laterally but still had a barely positive bounce. Therefore we removed 1 more mm of bone from the distal femur chamfer cuts revisited and on trialing the knee came out to full extension with negative bounce with 1 mm lateral opening and 2 or 2.5 mm of medial opening. At 30? of flexion medial side open 3 mm. There was central patellar tracking. Satisfied with this the lug holes for the femoral component were drilled. We had put the tourniquet down earlier at 90 minutes at this point the limb was re- exsanguinated tourniquet elevated again to 300 mmHg. Step drill was used to make multiple perforations in the surface the tibial plateau and distal femur. Bone quality was excellent. The bone surfaces were thoroughly irrigated and dried. Using 2 batches of methylmethacrylate 1 the gentamicin powder, cement was immediately applied to the size 63 vanguard tibial tray and the size 57.5 left cruciate retaining femoral component. Cement applied the tibial plateau pressurized tibial component fully seated cement applied the femur the femoral component fully seated the knee brought into extension with 11 mm 5 and 1 trial insert for cement pressurization. Tourniquet was released. Total tourniquet time proximally 110 minutes. After cement hardening excess cement was sought for removed and hemostasis was achieved. We trialed the 10 insert and had the same stability findings as above and this was placed and locked the locking pin. Range of motion stability and patellar tracking reconfirmed. Local anesthetic cocktail injected in the periarticular soft tissues. Two additional g of Ancef 1 g TXA given time wound closure. Arthrotomy was closed with 2. Vicryl suture and 1. Unidirectional barbed Stratafix suture. After arthrotomy closure range of motion was still 0-130 degrees flexion under gravity 135 passively. Skin was closed with 2 subcu Vicryl 3-0 subcuticular Monocryl and glue. EBL was 250 cc. Patient was transferred postop recovery room stable condition. No known complications. [facility] [place] [place] [facility] - Charge Forward: Surgery Billing (Left total knee replacement)
--- NOTE | 2025-05-31 11:09 | PM.OP ---
Procedure Note - Brief Procedure Note - Brief Date of procedure: 05/31/25 O A Left Knee Procedure performed: Left total knee arthroplasty Surgeon: JON Campbell Findings: 74-year-old female underwent left total knee arthroplasty on 05/31. I was involved in the procedure including positioning the patient on the OR table and 1st assisting through the time surgery. Total time spent was 3-1/2 hours
[2025-05-31] MEDS: fentaNYL CITRATE INJ (*CRX) 100 MCG/2 ML VIAL 25 MCG IV PUSH ×2 (11:52→11:56)
--- NOTE | 2025-05-31 13:48 | ADMGEN ---
This patient, Francesca Parrish, was admitted to Medical Room 347-. Patient/family oriented to hospital policies and general routines including ID bracelet, bed and alarms, visiting hours, pain management, procedures, bathroom and other care routines, personal items, smoking policy, room service/diet, and visiting hours. Information on how to activate the Rapid Response Team has been discussed. Patient/Family are encouraged to report perceived risks to care and to ask questions if they do not understand what they are told or what they should do.
[2025-05-31] MEDS: ACETAMINOPHEN 325 MG TABLET 650 MG PO ×3 (14:17→21:18)
[2025-05-31] MEDS: oxyCODONE HCL (*CRX) 2.5 MG TAB IR PO ×3 (14:18→21:18)
[2025-05-31] MEDS: ceFAZolin 2 GM/D5W 50 ML 2 GM/50 ML BAG IVPB ×2 (14:18→23:25)
--- NOTE | 2025-05-31 15:38 | P.CONIM_ITS ---
Assessment and Plan Assessment and plan (1) Primary osteoarthritis of left knee: Code(s): M17.12 - Unilateral primary osteoarthritis, left knee Status: Acute Assessment and Plan: Left total knee arthroplasty by Orthopedics on 05/31/2025 Pain management by Alyssia Bryant for VTE, Postop antibiotics PT OT Bowel protocol (2) Hypertension: Code(s): I10 - Essential (primary) hypertension Status: Acute Assessment and Plan: Holding antihypertensives (3) Hyperlipidemia: Code(s): E78.5 - Hyperlipidemia, unspecified Status: Acute Assessment and Plan: Continue pravastatin HPI Date of Consult Consult date: 05/31/25 Requesting Physician: Olu Palumbo MD Primary Care Provider: Roger Santos MD Consult Narrative Reason for consult: Medical management Narrative: Francesca Parrish is a 74 year old female with past medical history of left knee arthritis presents the hospital for a planned left total knee by Orthopedics. Hospitalist team has been consulted for medical management. Patient has been seen after OR. Patient states she has no postop nausea or vomiting. She is able to get up and use the restroom. She states that she is do well overall. Patient has no complaints. Review of Systems Review of Systems: 12 systems were reviewed and are negativ e except for as per HPI. [facility] Past Medical History Medical History (Updated 05/31/25 @ 15:43 by Cristina Zavala APRN) Hyperlipidemia Hypertension Surgical History Surgical History History of bunionectomy History of hand surgery History of hysterectomy History of cholecystectomy Social History Social History Smoking packs per day: 0.5 Smoking cigarettes per day: 10.0 Years smoked: 5 Smoking pack-years: 2.50 Smoking status: Former smoker Additional smoking assessment comments: DENIES ANY FORM OF TOBACCO USE Alcohol intake: current Alcohol use details: Occasional Substance use: never Do You Feel Safe in your Home?: Yes Lack of Transportation: No Lack of Food: Never True Current Housing: I Have Housing Concerned About Future Housing: No Difficulty Paying Gas/Electric Bills: No Difficulty Paying for Meds: No Currently Unemployed: No Education: High School Diploma/GED Difficulty w/ Childcare or Family Care: No Living arrangements: with family Spiritual care concerns: No Meds Home Medications and Allergies Home Medications ?Medication ?Instructions ?Recorded ?Confirmed ?Type Calcium Plus Vitamin D 1 tablet PO DAILY 04/04/25 05/31/25 History baclofen 20 mg tablet 20 mg PO PRN PRN muscle pain 04/04/25 05/31/25 History fluticasone propionate 50 1 spray intranasal DAILY 04/04/25 05/31/25 History mcg/actuation nasal spray,suspension (Flonase Allergy Relief) lisinopril 20 1 tablet PO DAILY 04/04/25 05/31/25 History mg-hydrochlorothiazide 12.5 mg tablet [id number] 8 mg-folic 400 1 tablet PO DAILY 04/04/25 05/31/25 History mcg-K 50 mcg-lutein 300 mcg tablet (Centrum Silver Women) pravastatin 10 mg tablet 10 mg PO DAILY 04/04/25 05/31/25 History tramadol 50 mg tablet 50 mg PO Q6H PRN pain 04/04/25 05/31/25 History acetaminophen 500 mg tablet 1,000 mg PO Q6H PRN pain 05/03/25 05/31/25 History (Acetaminophen Pain Relief) potassium chloride 10 mEq 10 meq PO DAILY 05/31/25 05/31/25 History tablet,extended release (Klor-Con) Allergies Allergy/AdvReac Type Severity Reaction Status Date / Time codeine AdvReac Intermediate Nausea Verified 05/31/25 06:10 Vital Signs Vital Signs - 24 hr 05/31/25 06:05 05/31/25 11:03 05/31/25 11:15 Temperature 98.9 F 98.4 F Pulse Rate 73 89 90 Respiratory Rate 18 11 L 15 Blood Pressure 135/59 L 124/63 115/56 L Pulse Oximetry 100 98 99 Oxygen Delivery Room Air Simple Face Mask Simple Face Mask Oxygen Flow Rate 8 8 05/31/25 11:30 05/31/25 11:45 05/31/25 12:00 Temperature Pulse Rate 87 77 81 Respiratory Rate 16 14 14 Blood Pressure 109/83 115/67 95/57 L Pulse Oximetry 92 97 98 Oxygen Delivery Room Air Nasal Cannula Nasal Cannula Oxygen Flow Rate 2 2 05/31/25 12:15 05/31/25 12:30 05/31/25 12:45 Temperature Pulse Rate 92 90 95 Respiratory Rate 18 18 20 Blood Pressure 117/66 111/72 121/64 Pulse Oximetry 98 97 97 Oxygen Delivery Nasal Cannula Nasal Cannula Nasal Cannula Oxygen Flow Rate 2 2 2 05/31/25 13:00 05/31/25 13:15 05/31/25 13:30 Temperature Pulse Rate 97 100 99 Respiratory Rate 18 20 18 Blood Pressure 103/73 137/67 136/72 Pulse Oximetry 97 97 96 Oxygen Delivery Nasal Cannula Nasal Cannula Nasal Cannula Oxygen Flow Rate 2 2 2 05/31/25 13:45 05/31/25 14:00 05/31/25 14:30 Temperature 98.4 F 98.2 F 98.2 F Pulse Rate 96 95 105 H Respiratory Rate 16 16 16 Blood Pressure 136/64 142/86 H 144/84 H Pulse Oximetry 98 98 95 Oxygen Delivery Oxygen Flow Rate 05/31/25 15:00 Temperature Pulse Rate Respiratory Rate Blood Pressure Pulse Oximetry Oxygen Delivery Room Air Oxygen Flow Rate Exam Narrative: General: well appearing, appears stated age. HEENT: normocephalic, atraumatic. Mucous membranes moist. EOMI, PERRLA, bilateral sclera anicteric, no conjunctival injection. Neck supple without JVD, lymphadenopathy, or bruit. Respiratory: clear to ascultation bilaterally. No rales/rhonic/wheezes. Cardiovascular: Regular rate and rhythm, normal S1-S2 upon ascultation. No murmurs, rubs, or clicks. PMI is nondisplaced, capillary refill less than 3 second. Abdomen: Soft, round, no pulsatile masses, nondistended and nontender. No rebound, no guarding. No CVA tenderness, no hepatosplenomegaly. Bowel sounds present to all four quadrants. No high pitch or tinkling sounds, resonant to percussion. Extremities: No cyanosis, clubbing, or edema present. Pulses are palpable 2/2. Left lower extremity dressing clean dry intact Neuro: Alert and orientated x 4. PERRLA. Cranial nerves 2-12 intact without focal deficit. Skin: Warm, dry, and intact, without rash, erythema, or lesion. Psych: pleasant, cooperative, normal speech, normal affect, no hallucinations, no dysarthia Quality VTE Prophylaxis VTE prophylaxis: mechanical ordered and pharmacologic ordered Hospitalist MIPS Advance Care Plan I have confirmed that the patient's Advanced Care Plan is present, code status is documented, or surrogate decision maker is listed in patient medical record.: Yes Medication Reconciliation I have utilized all available resources to obtain, update and review the patients current medications (includes all prescriptions, OTC, herbals, cannabis, and nutritional supplements).: Yes
[2025-05-31] MEDS: SENNA/DOCUSATE SODIUM TABLET 2 TAB PO (16:33)
[2025-05-31] MEDS: FAMOTIDINE 20 MG TABLET PO (21:18)
[2025-06-01] MEDS: oxyCODONE HCL (*CRX) 2.5 MG TAB IR PO ×3 (01:44→11:44)
[2025-06-01] MEDS: ACETAMINOPHEN 325 MG TABLET 650 MG PO ×3 (01:44→11:44)
[2025-06-01 05:05] VITALS: BP 125/49; PULSE 77; RESP 18; TEMP 36.7; O2SAT 98
[2025-06-01 05:33] LABS: Hematocrit 31.8 % (37.0-47.0); Hemoglobin 10.0 g/dL (12.0-15.0); Immature Granulocyte Percent A 0.5 % (0-0.5); Lymphocytes Absolute Auto 1.85 K/mm3 (0.9-3.2); Mean Corpuscular HGB Conc 31.4 g/dl (32-36); Mean Corpuscular Hemoglobin 31.5 pg (26-34); Mean Corpuscular Volume 100.3 fl (80-100); Nucleated Red Blood Cells Absolute Auto 0.000 K/mm3 (0.0-0.012); Nucleated Red Blood Cells Perc 0.0 % (0.0-0.2); Platelet Count Result 190 k/mm3 (150-375); Red Blood Count 3.17 M/mm3 (4.2-5.4); White Blood Count 8.1 K/mm3 (4.5-10.0)
[2025-06-01 05:52] LABS: Anion Gap 4 mmol/L (4-12); Blood Urea Nitrogen 18 mg/dL (7-17); Calcium 8.8 mg/dL (8.4-10.2); Carbon Dioxide 28 mmol/L (22-30); Chloride 105 mmol/L (98-107); Estimated CRCL calculation 48 ml/min; Estimated Glomerular Filt Rate > 60; Glucose 98 mg/dL (65-110); Potassium 3.5 mmol/L (3.4-5.0); Sodium 137 mmol/L (137-145)
[2025-06-01] MEDS: ceFAZolin 2 GM/D5W 50 ML 2 GM/50 ML BAG IVPB (06:00)
[2025-06-01] MEDS: VANCOMYCIN HCL 1,000 MG in SODIUM CHLORIDE 0.9% IV 250 ML 250 MG IVPB (06:42)
[2025-06-01 07:20] VITALS: BP 136/52; PULSE 78; RESP 18; O2SAT 98
--- NOTE | 2025-06-01 07:28 | P.PNOP_ITS ---
Subjective Subjective Date/Time Seen: 06/01/25 07:28 Interval history: Postop day 1 patient is alert. She is afebrile vital signs are stable. Morning labs are noted. Dressing is dry and intact. Patient was up walking yesterday in the halls with therapy. Pain is very well controlled. Patient is having no nausea postop. She feels excellent and is eager to go home. At this point will plan have the patient work with therapy this morning and once IV antibiotics have been completed she will be discharged to home late this morning. Objective Data Vital Signs Vital Signs: Vital Signs - 24 hr 05/31/25 11:03 05/31/25 11:15 05/31/25 11:30 Temperature 98.4 F Pulse Rate 89 90 87 Respiratory Rate 11 L 15 16 Blood Pressure 124/63 115/56 L 109/83 Pulse Oximetry 98 99 92 Oxygen Delivery Simple Face Mask Simple Face Mask Room Air Oxygen Flow Rate 8 8 Fraction of Inspired Oxygen 05/31/25 11:45 05/31/25 12:00 05/31/25 12:15 Temperature Pulse Rate 77 81 92 Respiratory Rate 14 14 18 Blood Pressure 115/67 95/57 L 117/66 Pulse Oximetry 97 98 98 Oxygen Delivery Nasal Cannula Nasal Cannula Nasal Cannula Oxygen Flow Rate 2 2 2 Fraction of Inspired Oxygen 05/31/25 12:30 05/31/25 12:45 05/31/25 13:00 Temperature Pulse Rate 90 95 97 Respiratory Rate 18 20 18 Blood Pressure 111/72 121/64 103/73 Pulse Oximetry 97 97 97 Oxygen Delivery Nasal Cannula Nasal Cannula Nasal Cannula Oxygen Flow Rate 2 2 2 Fraction of Inspired Oxygen 05/31/25 13:15 05/31/25 13:30 05/31/25 13:45 Temperature 98.4 F Pulse Rate 100 99 96 Respiratory Rate 20 18 16 Blood Pressure 137/67 136/72 136/64 Pulse Oximetry 97 96 98 Oxygen Delivery Nasal Cannula Nasal Cannula Oxygen Flow Rate 2 2 Fraction of Inspired Oxygen 05/31/25 14:00 05/31/25 14:30 05/31/25 15:00 Temperature 98.2 F 98.2 F Pulse Rate 95 105 H Respiratory Rate 16 16 Blood Pressure 142/86 H 144/84 H Pulse Oximetry 98 95 Oxygen Delivery Room Air Oxygen Flow Rate Fraction of Inspired Oxygen 05/31/25 15:30 05/31/25 15:31 05/31/25 19:42 Temperature 98.3 F 98.2 F Pulse Rate 95 87 Respiratory Rate 16 16 Blood Pressure 138/78 121/51 L Pulse Oximetry 97 98 Oxygen Delivery Room Air Oxygen Flow Rate Fraction of Inspired Oxygen 05/31/25 22:03 05/31/25 23:20 06/01/25 05:05 Temperature 98.2 F 98.1 F Pulse Rate 104 H 68 77 Respiratory Rate 20 16 18 Blood Pressure 111/48 L 125/49 L Pulse Oximetry 94 95 98 Oxygen Delivery Room Air Oxygen Flow Rate Fraction of Inspired Oxygen 21 Intake/Output Intake/Output: Intake & Output 05/29/25 05/30/25 05/31/25 06/01/25 23:59 23:59 23:59 23:59 Intake Total 1340 50 Balance 1340 50 Meds/Results Medications: Active Medications Generic Name Dose Route Start Last Admin Trade Name Freq PRN Reason Stop Dose Admin Acetaminophen 650 mg 05/31/25 14:00 06/01/25 05:05 Acetaminophen 325 Mg Tablet PO 650 mg Q4H ARSENIO Administration Apixaban 2.5 mg 06/01/25 09:00 Apixaban 2.5 Mg Tablet PO 06/12/25 21:01 Q12HR ARSENIO Cefdinir 300 mg 06/01/25 09:00 Cefdinir 300 Mg Capsule PO Q12HR [facility] Celecoxib 100 mg 06/01/25 08:00 Celecoxib 100 Mg Capsule PO DAILY@0800 [facility] Diphenhydramine HCl 25 mg 05/31/25 13:35 Diphenhydramine Hcl Inj 50 Mg/Ml Vial IV PUSH Q6H PRN Itching Famotidine 20 mg 05/31/25 21:00 05/31/25 21:18 Famotidine 20 Mg Tablet PO 20 mg Q12HR ARSENIO Administration Fluticasone Propionate 1 spray 06/01/25 09:00 Fluticasone Propionate 0.05% Na Spr 16 Gm Btl (*Bkc) NASAL DAILY ARSENIO Vancomycin HCl 1,000 mg/ 250 mls @ 250 mls/hr 05/31/25 19:00 06/01/25 06:42 Sodium Chloride IVPB 06/01/25 07:59 250 mls/hr Q12H ARSENIO Administration Cefazolin Sodium 2 gm in 50 mls @ 100 mls/hr 05/31/25 15:00 06/01/25 06:30 Ancef 2 Gm/D5w 50 Ml IVPB 06/01/25 07:29 Infused Q8H [facility] Infusion Morphine Sulfate 2 mg 05/31/25 13:35 Morphine Sulfate (*Crx) 2 Mg/Ml Inj IV PUSH Q2H PRN Breakthrough Pain Rated 4-6 or NPO Naloxone HCl 0.1 mg 05/31/25 13:35 Naloxone Hcl 0.4 Mg/Ml Vial IV PUSH Q2M PRN Opiate Reversal Ondansetron HCl 4 mg 05/31/25 13:35 Ondansetron Inj 4 Mg/2 Ml Vial IV PUSH Q4H PRN Nausea And Vomiting Oxycodone HCl 2.5 mg 05/31/25 14:00 06/01/25 05:05 Oxycodone Hcl (*Crx) 2.5 Mg Tab Ir PO 2.5 mg Q4H ARSENIO Administration Oxycodone HCl 5 mg 05/31/25 13:35 Oxycodone Hcl (*Crx) 5 Mg Tab Ir PO Q4H PRN Pain Rated 7-10 Oxycodone HCl 2.5 mg 05/31/25 13:35 Oxycodone Hcl (*Crx) 2.5 Mg Tab Ir PO Q4H PRN Pain Rated 7-10 Polyethylene Glycol 17 gm 06/01/25 09:00 Polyethylene Glycol 3350 17 Gm Powd.Pack PO QAM [facility] Potassium Chloride 10 meq 06/01/25 09:00 Potassium Chloride 10 Meq Er Tablet PO DAILY [facility] Pravastatin Sodium 10 mg 06/01/25 09:00 Pravastatin Sodium 10 Mg Tablet PO DAILY [facility] Senna/Docusate Sodium 2 tab 05/31/25 17:00 05/31/25 16:33 Senna/Docusate Sodium Tablet PO 2 tab BID [facility] Administration Labs Labs: Laboratory Results - last 24 hr 05/31/25 06/01/25 06:44 05:15 WBC 8.1 RBC 3.17 L Hgb 10.0 L D Hct 31.8 L MCV 100.3 H MCH 31.5 MCHC 31.4 L RDW 12.3 Plt Count 190 MPV 9.6 Immature Gran % (Auto) 0.5 Neut % (Auto) 65.6 Lymph % (Auto) 22.8 [place] % (Auto) 10.4 H Eos % (Auto) 0.2 Baso % (Auto) 0.5 Lymph # (Auto) 1.85 [place] # (Auto) 0.8 H Eos # (Auto) 0.0 Baso # (Auto) 0.0 Abs Immat Gran (auto) 0.04 H Absolute Neuts (auto) 5.3 Absolute Nucleated RBC 0.000 Nucleated RBC % 0.0 Sodium 137 Potassium 3.5 Chloride 105 Carbon Dioxide 28 Anion Gap 4 BUN 18 H Creatinine 0.82 Estim Creat Clear Calc 48 Estimated GFR > 60 Glucose 98 Calcium 8.8 Blood Type O Positive Antibody Screen Negative
[2025-06-01] MEDS: APIXABAN 2.5 MG TABLET PO (08:53)
[2025-06-01] MEDS: PRAVASTATIN SODIUM 10 MG TABLET PO (08:53)
[2025-06-01] MEDS: POTASSIUM CHLORIDE 10 MEQ ER TABLET PO (08:53)
[2025-06-01] MEDS: FAMOTIDINE 20 MG TABLET PO (08:53)
[2025-06-01] MEDS: SENNA/DOCUSATE SODIUM TABLET 2 TAB PO (08:53)
[2025-06-01] MEDS: CEFDINIR 300 MG CAPSULE PO (08:54)
[2025-06-01] MEDS: CELECOXIB 100 MG CAPSULE PO (08:54)
[2025-06-01] MEDS: ONDANSETRON INJ 4 MG/2 ML VIAL IV PUSH (09:41)
--- NOTE | 2025-06-01 10:18 | PC.NURSE ---
After medication administration patient worked with PT and became nauseated and puked.
== END 2025-06-01 12:03 | disposition home or self-care (01) ==
LOC: ANHSURGERY 05:54 → ANH3MED 13:38
PROVIDERS: Physician Assistant Surgical; PCP Internal Medicine; Visit Provider Orthopaedic Surgery
PROC: (CPT 27447; principal; 2025-05-31 07:30)
DX: M17.12 Unilateral primary osteoarthritis, left knee (principal); I10 Essential (primary) hypertension; E78.5 Hyperlipidemia, unspecified; Z87.891 Personal history of nicotine dependence
CPT/HCPCS: 27447; 36415; 73560; 80048; 85025; 86850; 86900; 86901; 97110; 97116; 97161; 97165; 97530; 97535; J0690; A9270; C1713; C1776; J0166; J0616; J1100; J1171; J1885; J2003; J2250; J2371; J2405; J2704; J2795; J3010; J3373; J7050; J7120

== ENCOUNTER 2025-06-04 08:03 | Outpatient (RCR) | payer MEDICARE, SELFPAY ==
--- NOTE | 2025-06-04 08:34 | OPREHPOC ---
Outpatient Therapy Plan of Care This is a Multidisciplinary Plan of Care that may contain components documented by all disciplines (PT, OT, and ST.) PT Problem 1 PT Problem #1 Knowledge Deficit PT Goal 1 Goal / Goal Update Independent and compliant with HEP. Target Visit 2 PT Problem 2 PT Problem #2 Pain PT Goal 1 Goal / Goal Update Pt to report no worse than 4/10 pain in the L knee with activity. Target Visit 12 PT Problem 3 PT Problem #3 Impaired Range of Motion PT Goal 1 Goal / Goal Update Pt to improve R knee AROM to 0-120 for improved ability to ambulate and navigate stairs. Target Visit 12 PT Problem 4 PT Problem #4 Impaired Strength PT Goal 1 Goal / Goal Update Pt to improve L hip strength to 5/5. Pt to improve L knee strength to 4/5. Target Visit 12 PT Problem 5 PT Problem #5 Impaired Functional Mobility PT Goal 1 Goal / Goal Update Pt to improve 6MWT distance to 800ft using LRAD without breaks. Pt to report 20% or less perceived disability on LEFS. Target Visit 12
--- NOTE | 2025-06-04 08:34 | PTOPEVAL1 ---
Assessment and note entered by Radha Andujar, PT Evaluation Information Assessment Status Evaluation ICD-10 Condition Codes (PT) Pain in left knee M25.562,Aftercare following joint replacement surgery Z47.1 Other ICD-10 Condition Codes ( M17.12, Z96.652 PT) Onset 05/31/25 Subjective Information Pt reports she had her L knee replaced on 05/31/25. She has been alternating taking Tylenol and Oxycodone for pain. States she was given exercises from Dr. Palumbo and has been performing them daily. States the surgeon doesn't want her up on her leg for more than 30 mins at a time so she tends to pick a couple exercises from her packet to do every hour. She currently ambulates using a WW but states she used a cane when out of the house before surgery. She would like to get back to ambulating with just her cane. She has been going up stairs at home as she has 3 to get into her house, and states she uses the up with the good and down with the bad rule. She sees the surgeon again next week. Reported Pain Level Pain Score 8: Self Report Assessment PT Clinical Summary Mrs. Parrish is a 74 yo female who presents for skilled PT evaluation following L TKA on 05/31/25. She demonstrates mm weakness, knee ROM limitations and gait deficits that prevent her from performing daily ADLs and functional mobility tasks. She will benefit from skilled PT intervention to address these deficits to be able to return to normal functional level and improve quality of life. Plan of Care Interventions Electrical Stimulation,Gait Training PT Services Indicated Yes Treatment Frequency and 2x/week for 12 visits Duration These treatments will address the objective and functional deficits as defined above. The patient will be advanced safely and appropriately in order for the patient to progress towards his/her prior level of function. Additional exercises will be introduced and as well as a comprehensive home exercise program upon discharge, if needed, ?to ensure carryover of functional gains achieved in the clinic. This treatment plan has been reviewed and agreement upon by the patient.
--- NOTE | 2025-07-05 09:11 | OPREHPOC ---
Outpatient Therapy Plan of Care This is a Multidisciplinary Plan of Care that may contain components documented by all disciplines (PT, OT, and ST.) PT Problem 1 PT Problem #1 Knowledge Deficit PT Goal 1 Goal / Goal Update Independent and compliant with HEP. Target Visit 2 Progress Met PT Problem 2 PT Problem #2 Pain PT Goal 1 Goal / Goal Update Pt to report no worse than 4/10 pain in the L knee with activity. Target Visit 12 Progress Not Met PT Problem 3 PT Problem #3 Impaired Range of Motion PT Goal 1 Goal / Goal Update Pt to improve R knee AROM to 0-120 for improved ability to ambulate and navigate stairs. Target Visit 12 Progress Met PT Problem 4 PT Problem #4 Impaired Strength PT Goal 1 Goal / Goal Update Pt to improve L hip strength to 5/5. -not met Pt to improve L knee strength to 4/5. -met Target Visit 12 Progress Partially Met PT Problem 5 PT Problem #5 Impaired Functional Mobility PT Goal 1 Goal / Goal Update Pt to improve 6MWT distance to 800ft using LRAD without breaks. -met Pt to report 20% or less perceived disability on LEFS. -progress Target Visit 12 Progress Partially Met
--- NOTE | 2025-07-05 09:11 | PTOPPROG ---
Assessment and note entered by Radha Andujar, PT Evaluation Information Assessment Status Progress ICD-10 Condition Codes (PT) Pain in left knee M25.562,Aftercare following joint replacement surgery Z47.1 Other ICD-10 Condition Codes ( M17.12, Z96.652 PT) Onset 05/31/25 Subjective Information Pt reports her knee is feeling really good and she 's happy with her progress thus far. She reports her pain is usually always a dull ache and more from stiffness rather than pain. She rates it a 3/ 10 at rest and it gets to 5/10 at the most. She reports she did try to ride her stationary bike at home but wasn't able to because it bent her knee too much, as the pedals go all the way around vs a seated stepper. She has continued her HEP at home was well as walking around her house and practicing her step ups. She reports she's able to go up her garage steps reciprocally without much difficulty. Assessment PT Clinical Summary Mrs. Parrish has attended 10 skilled PT visits following L TKA. She has made great progress in her ambulation and is now able to walk without an AD both around her house and in the clinic. She has also met her goals addressing L knee AROM and L knee strength, however she still demonstrates deficits in hip strength and endurance. She will continue to benefit from skilled PT intervention to make further progress toward goals. Plan of Care Interventions Electrical Stimulation,Gait Training PT Services Indicated Yes Treatment Frequency and Continue per POC Duration These treatments will address the objective and functional deficits as defined above. The patient will be advanced safely and appropriately in order for the patient to progress towards his/her prior level of function. Additional exercises will be introduced and as well as a comprehensive home exercise program upon discharge, if needed, ?to ensure carryover of functional gains achieved in the clinic. This treatment plan has been reviewed and agreement upon by the patient.
--- NOTE | 2025-07-12 09:03 | PTOPDC ---
Assessment and note entered by Ester Rod, PT Evaluation Information Assessment Status Discharge ICD-10 Condition Codes (PT) Pain in left knee M25.562,Aftercare following joint replacement surgery Z47.1 Other ICD-10 Condition Codes ( M17.12, Z96.652 PT) Onset 05/31/25 Subjective Information Pt reports her knee is feeling really good and she 's happy with her progress thus far. She reports her pain is usually always a dull ache and more from stiffness rather than pain. She reports she saw Dr. Palumbo yesterday and he was happy with her progress. She will not see him again until her 1 year follow up. She is still stretching everyday and feels she is ready to continue independently. Reported Pain Level Pain Score 1: Self Report Assessment PT Clinical Summary Mrs. Parrish has attended 12 skilled PT visits following L TKA. She has made great progress in her ambulation and is now able to walk without an AD both around her house and in the clinic. She is ascending and descending stairs reciprocally with one hand rail. She demonstrates good strength with very mild deficits in hip strength. She has met 5 out of 7 goals and made adequate progress on the remaining 2. She is being discharged from skilled PT to an independent [facility]. Plan of Care PT Services Indicated No
== END 2025-07-12 13:21 | disposition home or self-care (01) ==
LOC: CHSPT 08:03
PROVIDERS: Visit Provider Orthopaedic Surgery
DX: Z47.1 Aftercare following joint replacement surgery (principal); M17.12 Unilateral primary osteoarthritis, left knee; Z96.652 Presence of left artificial knee joint
CPT/HCPCS: 97110; 97112; 97150; 97161; 97530; 97750